=== PATIENT | male | born 1995 | race Caucasian/White ===

== ENCOUNTER 2016-10-05 17:07 | Emergency (ER) | payer MEDICAID ==
[~2016-10-05] VITALS: Ht 162.6 cm; Wt 68.8 kg
[~2016-10-05 17:07] MED LIST: ABIL30TA2 PO; DEPA500T3 PO; PROT40TA PO; SERO400T PO; TENE1TAB PO
[2016-10-05 17:23] VITALS: BP 109/56; PULSE 65; RESP 18; TEMP 98; O2SAT 99
--- NOTE | 2016-10-05 17:43 | PD ---
HPI Chief Complaint: Headache Time Seen by Provider: 17:30 Travel History International Travel<30 days: No Contact w/Intl Traveler<30days: No Traveled to known affect area: No History of Present Illness HPI This 20-year-old male is complaining of headache. He has a history of cerebral palsy and behavioral disorders. He has had a shunt all his life. He lives in a assisted. Apparently a shunt was reprogrammed fairly recently by Dr. Kevin diamond in [place]. The patient has been complaining of some headache. The headache she is having is a frontal headache. He has not had vomiting. He does have a history of headaches. 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 SHUNT) Psychiatric: Yes Respiratory: No Immunizations Current: Yes Migraines: No Renal Failure: No Seizures: Yes Sickle Cell Disease: No Thyroid Disease: No Ulcer: No Tetanus Vaccination: Unknown Influenza Vaccination: No Past Surgical History Abdominal Surgery: No Appendectomy: No Body Medical Devices: Shunt Cardiac Surgery: No Cholecystectomy: No 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) Neurologic Surgery: Yes (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 AND RELIGION INSTRUCTOR SHUNT, SHUNT REVISION, PERCUTANEOUS CATHETERIZATION OF SHUNT) Oral Surgery: Yes (T & A) Pacemaker: No Thoracic Surgery: No Tonsillectomy: Yes (AND ADENOIDS) Other Surgery: Yes (shunt x2, adenoidectomy, tonsillectomy ) Social History Alcohol Use: No Tobacco Use: No Substance Use: No Allergies-Medications (Allergen,Severity, Reaction): Coded Allergies: Chloral Hydrate (Verified Allergy, Severe, CAUSES HYPERACTIVITY, 10/05/16) Valium (Verified Allergy, Severe, CAUSES HYPERACTIVITY, 10/05/16) Seafood (Verified Allergy, Intermediate, hives, 10/05/16) Reported Meds & Prescriptions Reported Meds & Active Scripts Active Tenex (Guanfacine HCl) 1 Mg Tab 1 Mg PO 2 PO BID Do not crush, chew or divide tablet. Take with a meal. Depakote ER (Divalproex Sodium) 500 Mg Hernesto 500 Mg PO 2 PO QHS Seroquel (Quetiapine Fumarate) 400 Mg Tab 400 Mg PO BID Abilify (Aripiprazole) 30 Mg Tab 30 Mg PO 1/2 BID Protonix (Pantoprazole Sodium) 40 Mg Tab 40 Mg PO DAILY Review of Systems General / Constitutional: No: Fever, Chills Eyes: No: Diploplia, Blurred Vision HENT: Positive: Headaches Cardiovascular: No: Chest Pain or Discomfort, Palpitations Respiratory: No: Cough, Shortness of Breath Gastrointestinal: No: Vomiting, Diarrhea Genitourinary: No: Urgency, Frequency Physical Exam Narrative GENERAL: Well-developed male SKIN: Focused skin assessment warm/dry. HEAD: Atraumatic. Normocephalic. EYES: Pupils equal and round. No scleral icterus. No injection or drainage. ENT: No nasal bleeding or discharge. Mucous membranes pink and moist. NECK: Trachea midline. No JVD. CARDIOVASCULAR: Regular rate and rhythm. No murmur appreciated. RESPIRATORY: No accessory muscle use. Clear to auscultation. Breath sounds equal bilaterally. GASTROINTESTINAL: Abdomen soft, non-tender, nondistended. Hepatic and splenic margins not palpable. MUSCULOSKELETAL: No obvious deformities. No clubbing. No cyanosis. No edema. NEUROLOGICAL: Awake and alert. No obvious cranial nerve deficits. . Speech is somewhat slurred Data Data Last Documented VS Vital Signs Date Time Temp Pulse Resp B/P Pulse Ox O2 Delivery O2 Flow Rate FiO2 10/05/16 17:26 Room Air 10/05/16 17:23 98.0 65 18 109/56 99 Orders Shunt Series (10/05/16 ) Ct Brain W/O Iv Contrast(Rout) (10/05/16 ) [facility] Medical Decision Making Medical Screen Exam Complete: Yes Emergency Medical Condition: Yes Medical Record Reviewed: Yes Differential Diagnosis Differential includes nonspecific headache, shunt malfunction Narrative Course . CT scan of the brain is negative. There is no evidence of shunt malfunction. A shuntogram was done to is intact. It appears likely that these headaches are not related to the shunt. Diagnosis Primary Impression: Headache Disposition: 01 DISCHARGE HOME Condition: Stable Andriy Ellison MD October 05, 2016 17:43
--- NOTE | 2016-10-05 18:17 | RADHPO ---
EXAM DATE/TIME: 10/05/2016 17:43 [facility] COMPARISON: SHUNT SERIES, April 23, 2015, 1:27. INDICATIONS : Headaches. MEDICAL HISTORY : Gastroesophageal reflux disease. Hydrocephalus, Seizures, Bulimia, Cerebral palsy, Anemia, Auti sm SURGICAL HISTORY : Tonsillectomy. Shunt, Adenoidectomy ENCOUNTER: Initial ACUITY: 2 weeks PAIN SCORE: 5/10 LOCATION: Bilateral shunt FINDINGS: Radiograph of the skull, neck, chest and abdomen performed to evaluate shunt patency. The shunt cath eter is seen entering the right parietal region with its tip in the region of posterior horn of the r ight lateral ventral. The catheter is continuous in its course terminating in the left lower quadrant No catheter disruptio n is identified. The visualized heart, lungs and abdominal structures are intact. There is an old/abandoned catheter in the right upper quadrant of the abdomen. CONCLUSION: Intact shunt and appear similar to before. Geremias Zuniga MD on October 05, 2016 at 18:13 Board Certified Radiologist. This report was verified electronically.
--- NOTE | 2016-10-05 18:22 | RADHPO ---
EXAM DATE/TIME: 10/05/2016 18:01 [facility] COMPARISON: SHUNT SERIES, October 05, 2016, 17:43. CT BRAIN W/O CONTRAST, June 30, 2015, 15:48. INDICATIONS : Cephalgia. RADIATION DOSE: 62.36 CTDIvol (mGy) MEDICAL HISTORY : Seizures. Gastroesophageal reflux disease. Cerebral palsy. Hydrocephalus. 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 ENCOUNTER: Initial ACUITY: 2 weeks PAIN SCALE: 1/10 LOCATION: cranial TECHNIQUE: Multiple contiguous axial images were obtained of the head. Using automated exposure control and adj ustment of the mA and/or kV according to patient size, radiation dose was kept as low as reasonably a chievable to obtain optimal diagnostic quality images. FINDINGS: CEREBRUM: The ventricles are normal for age. No evidence of midline shift, mass lesion, hemorrhage or acute in farction. No extra-axial fluid collections are seen. Right parietal AUTO BODY SHOP MANAGER shunt catheter again noted. T ip is near the third ventricle. Mild prominence of the posterior horns of both lateral ventricles is similar to before. POSTERIOR FOSSA: The cerebellum and brainstem are intact. The 4th ventricle is midline. The cerebellopontine angle i s unremarkable. EXTRACRANIAL: The visualized portion of the orbits is intact. SKULL: The calvaria is intact. No evidence of skull fracture. CONCLUSION: No acute process or significant change. Nothing to suggest shunt malfunction. Geremias Zuniga MD on October 05, 2016 at 18:19 Board Certified Radiologist. This report was verified electronically.
[2016-10-05 18:37] VITALS: BP 112/60; PULSE 63; RESP 14; O2SAT 100
== END 2016-10-05 18:42 | disposition home or self-care (01) ==
LOC: PHED 17:07
DX: R51 Headache (principal); G80.9 Cerebral palsy, unspecified; G91.9 Hydrocephalus, unspecified; Z98.2 Presence of cerebrospinal fluid drainage device
CPT/HCPCS: 70250; 70450; 71010; 72040; 74000

== ENCOUNTER 2016-11-22 20:11 | Emergency (ER) | payer MEDICAID, OTHER ==
[~2016-11-22] VITALS: Ht 167.6 cm; Wt 67.3 kg
[2016-11-22 20:29] VITALS: BP 125/70; PULSE 87; RESP 16; TEMP 98.3; O2SAT 97
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
[2016-11-23 02:50] VITALS: BP 126/59; PULSE 79; RESP 20; TEMP 98.3; O2SAT 98
[2016-11-23] MEDS ORDERED: GUAN1TAB PO (04:55)
[2016-11-23 06:22] VITALS: BP 138/60; PULSE 80; RESP 16; O2SAT 99
[2016-11-23 10:00] VITALS: BP 132/63; PULSE 91; RESP 18
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
[2016-12-10] MEDS ORDERED: DEPA500T3 PO (14:06)
[2016-12-10] MEDS ORDERED: SERO400T PO (14:06)
[2016-12-10] MEDS ORDERED: ABIL30TA2 PO (14:06)
[2016-12-10] MEDS ORDERED: PROT40TA PO (14:06)
[2016-12-10] MEDS ORDERED: GUAN1TAB PO ×2 (14:06→14:59)
== END 2016-11-23 13:37 | disposition home or self-care (01) ==
LOC: NEPD 20:11 → NEPJ 11-23 13:37
DX: F63.81 Intermittent explosive disorder (principal); F84.0 Autistic disorder; G80.9 Cerebral palsy, unspecified; R56.9 Unspecified convulsions; Z04.6 Encounter for general psychiatric examination, requested by authority; Z98.2 Presence of cerebrospinal fluid drainage device
CPT/HCPCS: 99284

== ENCOUNTER 2017-07-22 16:05 | Emergency (ER) | payer MEDICAID, OTHER ==
[~2017-07-22] VITALS: Ht 175.3 cm; Wt 74.0 kg
[~2017-07-22 16:05] MED LIST changes: -ABIL30TA2 PO; +ABIL30TA5 PO; +GUAN1TAB PO; -TENE1TAB PO
[2017-07-22 16:12] VITALS: BP 138/60; PULSE 89; RESP 20; TEMP 99.3; O2SAT 98
[2017-07-22] MEDS ORDERED: CLAR10CA3 PO (16:25)
[2017-07-22] MEDS ORDERED: IBUPROFEN 800 MG TAB PO ONE (16:30)
[2017-07-22] MEDS ORDERED: ONDANSETRON ODT 4 MG TAB PO ONE (16:30)
--- NOTE | 2017-07-22 16:35 | PD ---
HPI Chief Complaint: Cold / Flu Symptoms Time Seen by Provider: 16:20 Travel History International Travel<30 days: No Contact w/Intl Traveler<30days: No Traveled to known affect area: No History of Present Illness HPI Patient comes to the emergency department complaining of cold and flulike symptoms ongoing for 72 hours. Reports fevers, body aches, dry nonproductive cough, nausea, sore throat, and headache. Family has been giving Tylenol and ibuprofen for symptomatic relief last dose was over 8 hours ago. Patient reports minimal improvement in symptoms with this. Denies any vomiting, change in bowel or bladder, abdominal pain, chest pain, shortness of breath, or neck pain. Patient goes to a snf reports 1 of the other members was tested positive for flu. Denies any difficulty swallowing. PFSH Past Medical History ADHD: Yes Blood Disorders: No Weight (Kg): 1 Cancer: No Cardiovascular Problems: No Cerebral Palsy: Yes (RT SIDED SYMPTOMS) Chemotherapy: No Diabetes: No Diminished Hearing: No Endocrine: No Gastrointestinal Disorders: No Genitourinary: No Headaches: No Hepatitis: No Hiatal Hernia: No Hypertension: No Medical other: Yes (CEREBRAL PALSY, GERD, EPILEPSY/SEIZURES, HX OF ANEMIA, DIETIST SHUNT) Musculoskeletal: Yes (cp) Neurologic: Yes (HX HYDROCEPHALUS; DIETIST SHUNT) Psychiatric: Yes Respiratory: No Immunizations Current: Yes Migraines: No Renal Failure: No Seizures: Yes Sickle Cell Disease: No Thyroid Disease: No Ulcer: No Past Surgical History Abdominal Surgery: No Appendectomy: No Body Medical Devices: Shunt Cardiac Surgery: No Section: Yes Cholecystectomy: No 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) Neurologic Surgery: Yes (DIETIST SHUNT, SHUNT REVISION, PERCUTANEOUS CATHETERIZATION OF SHUNT) Oral Surgery: Yes (T & A) Pacemaker: No Thoracic Surgery: No Tonsillectomy: Yes (AND ADENOIDS) Other Surgery: Yes (shunt x2, adenoidectomy, tonsillectomy ) Social History Alcohol Use: No Tobacco Use: No Substance Use: No Allergies-Medications (Allergen,Severity, Reaction): Coded Allergies: chloral hydrate (Unverified Allergy, Severe, CAUSES HYPERACTIVITY, 07/22/17 ) diazepam (Unverified Allergy, Severe, CAUSES HYPERACTIVITY, 07/22/17) Fish Containing Products (Unverified Allergy, Intermediate, hives, 07/22/17 ) Reported Meds & Prescriptions Reported Meds & Active Scripts Active Depakote ER (Divalproex Sodium) 500 Mg [place] 500 Mg PO 2 PO QHS Abilify (Aripiprazole) 30 Mg Tab 30 Mg PO 1/2 BID Seroquel (Quetiapine Fumarate) 400 Mg Tab 400 Mg PO BID Protonix (Pantoprazole Sodium) 40 Mg Tab 40 Mg PO DAILY Guanfacine (Guanfacine HCl) 1 Mg Tab 2 Mg PO BID Do not crush, chew or divide tablet. Take with a meal. Reported Claritin (Loratadine) 10 Mg Cap 10 Mg PO DAILY Review of Systems Except as stated in HPI: all other systems reviewed are Neg Physical Exam Narrative GENERAL: Well-developed, overly nourished, in no acute distress, and non-ill appearing. SKIN: Focused skin assessment warm and dry. HEAD: Atraumatic. Normocephalic. EYES: Pupils equal and round. EOMI. No scleral icterus. No injection or drainage. ENT: No nasal bleeding or discharge. Mucous membranes pink and moist. Tympanic membranes pearly gustafson bilaterally. Posterior pharynx not erythematous and without exudate. Uvula is midline. No tenderness to facial sinuses to palpation. NECK: Trachea midline. No cervical lymph adenopathy. Supple. No nuclear rigidity. CARDIOVASCULAR: Regular rate and rhythm. No murmur appreciated. RESPIRATORY: No accessory muscle use. No respiratory distress. Clear to auscultation. Breath sounds equal bilaterally. GASTROINTESTINAL: Abdomen soft, non-tender, nondistended, and no guarding. Hepatic and splenic margins not palpable. Normal bowel sounds x4. No pulsatile mass. MUSCULOSKELETAL: No obvious deformities. No clubbing. No cyanosis. No edema. Full range of motion. NEUROLOGICAL: Awake and alert. No obvious cranial nerve deficits. Motor grossly within normal limits. Normal speech. PSYCHIATRIC: Appropriate mood and affect; insight and judgment normal. Data Data Last Documented VS Vital Signs Date Time Temp Pulse Resp B/P (MAP) Pulse Ox O2 Delivery O2 Flow Rate FiO2 07/22/17 16:12 99.3 89 20 138/60 (86) 98 Orders Orders Group A Rapid Strep Screen (07/22/17 16:26) Influenzae A/B Antigen (07/22/17 16:26) Chest, Single Ap (07/22/17 ) Ondansetron Odt (Zofran Odt) (07/22/17 16:30) Ibuprofen (Motrin) (07/22/17 16:30) Strep Culture (Group A) (07/22/17 16:33) Ed Discharge Order (07/22/17 16:53) [facility] Medical Decision Making Medical Screen Exam Complete: Yes Emergency Medical Condition: Yes Interpretation(s) Last Impressions Chest X-Ray 07/22/17 0000 Signed Impressions: Service Date/Time: Saturday, July 22, 2017 16:32 - CONCLUSION: The lungs are clear. Juaquin Shaw MD Differential Diagnosis Influenza, strep pharyngitis, URI, viral pharyngitis, pneumonia, bronchitis, viral syndrome Narrative Course Patient looks great. Patients symptom complex is consistent with Influenza, or flu-like illness. The patient is tolerating fluids and is well hydrated. There is no evidence to suggest secondary infection (pneumonia, sepsis/bacteremia, etc.) at this time. I discussed with the patient and family, diagnosis, and plan of care and to follow up with the patients primary physician. Flu prep is positive. I discussed with the patient and family initiating Tamiflu and the patient is outside the therapeutic window and the patient and family agreed with plan. The patient was instructed to return if the worsens in anyway, especially if not tolerating fluids, increased pain or swelling, difficulty swallowing or breathing, or as needed. The patient and family agreed with plan. Chest X-ray was performed and negative for consolidation, pneumonia. Patient in no obvious distress upon re-evaluation. All pertinent laboratory/ Radiology result(s) discussed with patient/family. Any questions/concerns in reference to patient diagnosis/condition discussed and clarified prior to patient's discharge. Reinforced sheer importance of close follow up with patient 's primary physician or primary care clinic. Instructed patient to return to ED immediately, if symptoms return/worsen. Patient and family showed understanding of above instructions. Further instructions and recommendations were detailed in discharge paperwork. Patient ambulated without difficulty out of ED at discharge. Diagnosis Primary Impression: Influenza B Patient Instructions: General Instructions, Influenza (ED) Additional Instructions: Follow-up with your primary care physician in 3-5 days for reevaluation. He is [id number] Tylenol and ibuprofen for pain and fever control. Follow instructions on the packaging. Drink plenty of non-caffeinated and nonalcoholic fluids. Return to the emergency department if symptoms get worse. Disposition: 01 DISCHARGE HOME Condition: Stable Moreno Vera Jul 22, 2017 16:35
--- NOTE | 2017-07-22 16:47 | RADRPT ---
EXAM DATE/TIME: 07/22/2017 16:32 [facility] COMPARISON: No previous studies available for comparison. INDICATIONS : Cough and fever MEDICAL HISTORY : Seizures SURGICAL HISTORY : [employer] Shunt ENCOUNTER: Initial ACUITY: 1 week PAIN SCORE: 10/10 LOCATION: Bilateral chest FINDINGS: A single view of the chest demonstrates the lungs to be symmetrically aerated without evidence of mas s, infiltrate or effusion. The cardiomediastinal contours are unremarkable. Osseous structures are intact. The shunt tubing traverses the right [id number]. CONCLUSION: The lungs are clear. Juaquin Shaw MD on July 22, 2017 at 16:45 Board Certified Radiologist. This report was verified electronically.
== END 2017-07-22 17:01 | disposition home or self-care (01) ==
LOC: PHEFT 16:05
DX: J10.1 Influenza due to other identified influenza virus with other respiratory manifestations (principal); G80.9 Cerebral palsy, unspecified; G40.909 Epilepsy, unspecified, not intractable, without status epilepticus; F90.9 Attention-deficit hyperactivity disorder, unspecified type; K21.9 Gastro-esophageal reflux disease without esophagitis; Z98.2 Presence of cerebrospinal fluid drainage device
CPT/HCPCS: 71045; 87081; 87804; 87880; 99284